=== PATIENT | female | born 1995 | race Native Hawaiian/Other Pacific Islander ===

== ENCOUNTER 2017-12-10 18:41 | Emergency (ER) | payer OTHER | END 2017-12-10 19:21 | disposition home or self-care (01) | LOC: ED 18:41 | DX: Z01.30 Encounter for examination of blood pressure without abnormal findings (principal); Z33.1 Pregnant state, incidental | CPT/HCPCS: 99281 ==

== ENCOUNTER 2018-03-11 03:54 | Emergency (ER) | payer OTHER ==
[~2018-03-11] VITALS: Ht 162.6 cm; Wt 90.7 kg
[2018-03-11 04:49] LABS: PLATELET COUNT 243 K/uL (152-353)
[2018-03-11 05:01] LABS: POTASSIUM 3.8 mmol/L (3.6-5.2); SODIUM 140 mmol/L (136-145)
[2018-03-11 05:34] VITALS: BP 101/71; TEMP 98.3
== END 2018-03-11 05:35 | disposition home or self-care (01) ==
LOC: ED 03:54
PROVIDERS: Family Medicine
DX: I49.8 Other specified cardiac arrhythmias (principal); R07.89 Other chest pain
CPT/HCPCS: 36415; 80053; 84484; 85027; 85379; 93005; 99283

== ENCOUNTER 2018-03-19 19:29 | Emergency (ER) | payer OTHER ==
[~2018-03-19] VITALS: Ht 162.6 cm; Wt 90.7 kg
[2018-03-19 21:08] LABS: PLATELET COUNT 280 K/uL (152-353)
[2018-03-19 21:15] LABS: POTASSIUM 3.7 mmol/L (3.6-5.2)
[2018-03-19 22:17] VITALS: BP 104/54; TEMP 97.2
== END 2018-03-19 22:15 | disposition home or self-care (01) ==
LOC: ED 19:29
DX: R10.84 Generalized abdominal pain (principal); R11.0 Nausea
CPT/HCPCS: 36415; 74022; 80053; 81000; 81025; 85027; 99283

== ENCOUNTER 2018-03-26 20:47 | Emergency (ER) | payer OTHER ==
[~2018-03-26] VITALS: Ht 162.6 cm; Wt 90.7 kg
[2018-03-26 21:54] LABS: PLATELET COUNT 299 K/uL (152-353)
[2018-03-26 22:17] LABS: POTASSIUM 3.7 mmol/L (3.6-5.2)
[2018-03-27 02:08] VITALS: BP 112/76; TEMP 97.9
== END 2018-03-27 02:08 | disposition home or self-care (01) ==
LOC: ED 20:47
PROVIDERS: Internal Medicine
DX: R10.31 Right lower quadrant pain (principal)
CPT/HCPCS: 36415; 80053; 81000; 85027; 99283

== ENCOUNTER 2018-04-27 12:22 | Emergency (ER) | payer OTHER | END 2018-04-27 12:28 | disposition home or self-care (01) | LOC: ED 12:22 | DX: R52 Pain, unspecified (principal) ==